=== PATIENT | female | born 1960 | race African-American/Black ===

== ENCOUNTER 2020-05-05 10:38 | Inpatient (IN) | payer MEDICAID, OTHER, SELFPAY ==
[~2020-05-05] VITALS: Ht 162.6 cm; Wt 72.1 kg
[2020-05-05] MEDS ORDERED: AZITHROMYCIN 500 MG in DEXT 5% WATER 250 ML IV ONE (11:15)
[2020-05-05] MEDS ORDERED: VANCOMYCIN 1 G PREMIX 200 ML IV ONE (11:15)
[2020-05-05] MEDS ORDERED: PIPERACILLIN/TAZ 3.375G PREMIX 50 ML IV ONE (11:15)
[2020-05-05 11:22] LABS: BASOPHILS % 0.8 % (0.0-2.0); HEMATOCRIT. 45.8 % (36.0-48.0); HEMOGLOBIN. 15.4 g/dL (12.0-16.0); LYMPHOCYTES % 7.2 % (20.0-50.0); MEAN CORPUSCULAR HEMOGLOBIN 29.6 pg (28.0-32.0); MEAN CORPUSCULAR VOLUME 87.8 fL (81.0-99.0); MEAN PLATELET VOLUME 11.9 fl (7.4-10.4); MONOCYTES % 2.6 % (2.0-8.0); NEUTROPHILS % 89.4 % (40.0-76.0); PLATELET 309 x1000/uL (130-400); RED BLOOD CELL COUNT 5.21 mill/uL (4.2-5.4); RED CELL DISTRIBUTION WIDTH 14.1 % (11.6-14.6)
[2020-05-05 11:27] LABS: CHLORIDE 113 mEq/L (98-107)
[2020-05-05 11:29] LABS: INR 1.1; PROTHROMBIN TIME 11.6 sec (9.6-11.0)
[2020-05-05 11:30] LABS: ETHANOL BLOOD < 10 mg/dL
[2020-05-05 11:35] LABS: CREATINE KINASE 429 IU/L (26-192)
[2020-05-05 11:35] LABS: CLARITY URINE TURBID (CLEAR); COLOR URINE DARK YELLOW (YELLOW); KETONES URINE 1+ (NEGATIVE); LEUKOCYTE ESTERASE URINE NEGATIVE (NEGATIVE); NITRITE URINE NEGATIVE (NEGATIVE); OCCULT BLOOD URINE 3+ (NEGATIVE); PROTEIN URINE 4+ (NEGATIVE); SPECIFIC GRAVITY URINE 1.045 (1.005-1.030); UROBILINOGEN URINE 0.2 E.U./dL (0.2-1.0)
[2020-05-05 11:42] LABS: HCG SCREEN NEGATIVE
[2020-05-05 11:51] LABS: *AMPHETAMINES SCREEN URINE NEGATIVE (NEGATIVE); *BARBITURATES SCREEN URINE NEGATIVE (NEGATIVE)
[2020-05-05 11:52] LABS: *BENZODIAZEPINES SCREEN URINE NEGATIVE (NEGATIVE); *COCAINE SCREEN URINE NEGATIVE (NEGATIVE); CANNABINOID URINE SCREEN PRESUMTIVE POSITIVE (NEGATIVE); METHADONE URINE SCREEN NEGATIVE (NEGATIVE); OPIATES URINE SCREEN NEGATIVE (NEGATIVE); PHENCYCLIDINE URINE SCREEN NEGATIVE (NEGATIVE)
[2020-05-05] MEDS ORDERED: LORAZEPAM 2MG/ML CPJ IV ONE (16:00)
[2020-05-05] MEDS ORDERED: METOPROLOL TARTRATE 25MG TABLET PO NR (16:30)
[2020-05-05] MEDS ORDERED: ONDANSETRON HCL 4MG/2ML INJ IV PRN (16:45)
[2020-05-05] MEDS ORDERED: ACETAMINOPHEN 325MG TABLET PO PRN (16:45)
[2020-05-05] MEDS: ASPIRIN 81MG TABLET PO SCH (16:55)
[2020-05-05 16:56] LABS: BG CARBOXYHEMOGLOBIN 0.3 % (0.5-1.5); BG DEOXYHEMOGLOBIN 1.3 % (0.0-5.0); BG HCO3 ACT 22.8 mmol/L (22.0-26.0); BG METHEMOGLOBIN 0.3 % (0.0-1.5); BG OXYGEN SATURATION 98.7 % (92.0-98.5); BG OXYHEMOGLOBIN 98.1 % (94.0-97.0); BG PCO2 39.5 mmHg (35.0-45.0); BG PO2 142.2 mmHg (75.0-100.0); BG SAMPLE SITE RIGHT RADIAL; BG TOTAL HEMOGLOBIN 14.3 g/dL (12.0-18.0); BG VENT MODE NASAL CANNULA
[2020-05-05 17:20] LABS: FOLIC ACID (FOLATE) SERUM 12.8 ng/mL (>5.38)
[2020-05-05] MEDS ORDERED: PIPERACILLIN/TAZOBACTAM 2.25 G in DEXTROSE 5% WATER 50 ML IV SCH (18:00)
[2020-05-05 20:00] VITALS: BP 140/93
[2020-05-05 20:55] VITALS: BP 140/93
[2020-05-05] MEDS ORDERED: SODIUM CHLORIDE 0.45% 1,000 ML IV ONE (21:30)
[2020-05-05] MEDS: METOPROLOL TARTRATE 25MG TABLET PO SCH (22:37)
[2020-05-05] MEDS: NITROGLYCERIN OINT 1GM/INCH UDPKT TD SCH (22:38)
[2020-05-05] MEDS: PIPERACILLIN/TAZOBACTAM 2.25 G in DEXTROSE 5% WATER 50 ML IV SCH (23:09)
[2020-05-06] VITALS: BP 130/84
[2020-05-06 04:00] VITALS: BP 124/84
[2020-05-06] MEDS: NITROGLYCERIN OINT 1GM/INCH UDPKT TD SCH ×3 (05:34→21:32)
[2020-05-06] MEDS: PIPERACILLIN/TAZOBACTAM 2.25 G in DEXTROSE 5% WATER 50 ML IV SCH ×2 (05:34→11:03)
[2020-05-06 06:47] LABS: HEMATOCRIT. 38.6 % (36.0-48.0); HEMOGLOBIN. 12.7 g/dL (12.0-16.0); MEAN CORPUSCULAR HEMOGLOBIN 28.9 pg (28.0-32.0); MEAN CORPUSCULAR VOLUME 88.1 fL (81.0-99.0); MEAN PLATELET VOLUME 12.5 fl (7.4-10.4); PLATELET 228 x1000/uL (130-400); RED BLOOD CELL COUNT 4.38 mill/uL (4.2-5.4); RED CELL DISTRIBUTION WIDTH 14.5 % (11.6-14.6)
[2020-05-06 07:08] LABS: PHOSPHORUS 4.3 mg/dL (2.5-4.9)
[2020-05-06 08:00] VITALS: BP 129/82
[2020-05-06] MEDS: ASPIRIN 81MG TABLET PO SCH (08:29)
[2020-05-06] MEDS: METOPROLOL TARTRATE 25MG TABLET PO SCH ×2 (08:29→21:00)
[2020-05-06] MEDS ORDERED: VANCOMYCIN 1 G PREMIX 200 ML IV NR (11:00)
[2020-05-06] MEDS: DEXT 5%/0.2% NACL 1,000 ML IV SCH (11:47)
[2020-05-06 12:00] VITALS: BP 107/66
[2020-05-06 14:00] VITALS: BP 120/75
[2020-05-06] MEDS ORDERED: CLOPIDOGREL 75MG TABLET PO NR (16:45)
[2020-05-06 20:00] VITALS: BP 102/60
[2020-05-06] MEDS: ATORVASTATIN CALCIUM 40MG TABLET PO SCH (21:35)
[2020-05-07] VITALS: BP 100/56
[2020-05-07] MEDS: DEXT 5%/0.2% NACL 1,000 ML IV SCH ×2 (02:54→13:45)
[2020-05-07 04:00] VITALS: BP 106/62
[2020-05-07] MEDS: NITROGLYCERIN OINT 1GM/INCH UDPKT TD SCH ×3 (05:32→22:08)
[2020-05-07 07:39] LABS: BASOPHILS % 0.2 % (0.0-2.0); EOSINOPHILS % 0.5 % (0.0-5.0); HEMATOCRIT. 33.8 % (36.0-48.0); HEMOGLOBIN. 11.4 g/dL (12.0-16.0); LYMPHOCYTES % 12.2 % (20.0-50.0); MEAN CORPUSCULAR HEMOGLOBIN 29.5 pg (28.0-32.0); MEAN CORPUSCULAR VOLUME 87.5 fL (81.0-99.0); MEAN PLATELET VOLUME 12.1 fl (7.4-10.4); MONOCYTES % 5.2 % (2.0-8.0); NEUTROPHILS % 81.9 % (40.0-76.0); PLATELET 172 x1000/uL (130-400); RED BLOOD CELL COUNT 3.86 mill/uL (4.2-5.4); RED CELL DISTRIBUTION WIDTH 14.1 % (11.6-14.6)
[2020-05-07 08:00] VITALS: BP 118/65
[2020-05-07 09:04] LABS: PLATELET ESTIMATE NORMAL
[2020-05-07] MEDS: ASPIRIN 81MG TABLET PO SCH (09:22)
[2020-05-07] MEDS: CLOPIDOGREL 75MG TABLET PO SCH (09:23)
[2020-05-07] MEDS: METOPROLOL TARTRATE 25MG TABLET PO SCH ×2 (09:23→22:07)
[2020-05-07] MEDS ORDERED: POTASSIUM PHOS,M-BASIC-D-BASIC 15 MMOL in DEXT 5% WATER 245 ML IV SCH (12:00)
[2020-05-07] MEDS: VANCOMYCIN 1 G PREMIX 200 ML IV SCH (13:45)
[2020-05-07 14:34] VITALS: BP 128/81
[2020-05-07 16:08] VITALS: BP 134/86
[2020-05-07 20:00] VITALS: BP 107/71
[2020-05-07] MEDS: ATORVASTATIN CALCIUM 40MG TABLET PO SCH (22:07)
[2020-05-08] VITALS: BP 135/89
[2020-05-08 04:00] VITALS: BP 147/88
[2020-05-08] MEDS: DEXT 5%/0.2% NACL 1,000 ML IV SCH ×2 (04:42→16:20)
[2020-05-08 06:43] LABS: BASOPHILS % 0.2 % (0.0-2.0); HEMATOCRIT. 35.2 % (36.0-48.0); LYMPHOCYTES % 14.3 % (20.0-50.0); MEAN CORPUSCULAR HEMOGLOBIN 29.8 pg (28.0-32.0); MEAN CORPUSCULAR VOLUME 87.1 fL (81.0-99.0); MEAN PLATELET VOLUME 12.2 fl (7.4-10.4); MONOCYTES % 7.3 % (2.0-8.0); NEUTROPHILS % 77.2 % (40.0-76.0); PLATELET 184 x1000/uL (130-400); RED BLOOD CELL COUNT 4.04 mill/uL (4.2-5.4); RED CELL DISTRIBUTION WIDTH 13.8 % (11.6-14.6)
[2020-05-08] MEDS: NITROGLYCERIN OINT 1GM/INCH UDPKT TD SCH ×3 (06:49→23:14)
[2020-05-08 07:17] LABS: CHLORIDE 108 mEq/L (98-107)
[2020-05-08 07:25] LABS: PHOSPHORUS 2.9 mg/dL (2.5-4.9); TOTAL IRON BINDING CAPACITY 253 ug/dL (250-450)
[2020-05-08 08:00] VITALS: BP 140/85
[2020-05-08] MEDS: VANCOMYCIN 1 G PREMIX 200 ML IV SCH (08:56)
[2020-05-08] MEDS: CLOPIDOGREL 75MG TABLET PO SCH (08:57)
[2020-05-08] MEDS: METOPROLOL TARTRATE 25MG TABLET PO SCH ×2 (08:57→21:21)
[2020-05-08] MEDS: ASPIRIN 81MG TABLET PO SCH (08:57)
[2020-05-08 12:00] VITALS: BP 144/76
[2020-05-08 16:00] VITALS: BP 143/90
[2020-05-08 20:00] VITALS: BP 142/98
[2020-05-08] MEDS: ATORVASTATIN CALCIUM 40MG TABLET PO SCH (21:21)
[2020-05-09] VITALS: BP 131/87
[2020-05-09] MEDS: VANCOMYCIN 1 G PREMIX 200 ML IV SCH ×2 (02:56→21:05)
[2020-05-09] MEDS: DEXT 5%/0.2% NACL 1,000 ML IV SCH ×2 (03:02→18:19)
[2020-05-09 04:00] VITALS: BP 135/89
[2020-05-09 06:22] LABS: BASOPHILS % 0.4 % (0.0-2.0); EOSINOPHILS % 1.8 % (0.0-5.0); HEMATOCRIT. 35.1 % (36.0-48.0); HEMOGLOBIN. 12.1 g/dL (12.0-16.0); LYMPHOCYTES % 15.3 % (20.0-50.0); MEAN CORPUSCULAR HEMOGLOBIN 29.8 pg (28.0-32.0); MEAN CORPUSCULAR VOLUME 86.7 fL (81.0-99.0); MEAN PLATELET VOLUME 11.9 fl (7.4-10.4); MONOCYTES % 7.6 % (2.0-8.0); NEUTROPHILS % 74.9 % (40.0-76.0); PLATELET 170 x1000/uL (130-400); RED BLOOD CELL COUNT 4.05 mill/uL (4.2-5.4); RED CELL DISTRIBUTION WIDTH 13.6 % (11.6-14.6)
[2020-05-09 06:34] LABS: CHLORIDE 107 mEq/L (98-107)
[2020-05-09] MEDS: NITROGLYCERIN OINT 1GM/INCH UDPKT TD SCH ×3 (06:40→21:04)
[2020-05-09 08:00] VITALS: BP 139/90
[2020-05-09] MEDS: ASPIRIN 81MG TABLET PO SCH (08:50)
[2020-05-09] MEDS: METOPROLOL TARTRATE 25MG TABLET PO SCH ×2 (08:50→21:03)
[2020-05-09] MEDS: CLOPIDOGREL 75MG TABLET PO SCH ×2 (08:51→15:50)
[2020-05-09 12:00] VITALS: BP 142/97
[2020-05-09] MEDS: NYSTATIN/TRIAMCIN CREAM 30GM TOP SCH (12:53)
[2020-05-09 16:00] VITALS: BP 145/98
[2020-05-09 20:00] VITALS: BP 139/95
[2020-05-09] MEDS: ATORVASTATIN CALCIUM 40MG TABLET PO SCH (21:04)
[2020-05-09] MEDS: ACETAMINOPHEN 325MG TABLET PO PRN (21:21)
[2020-05-10] VITALS: BP 120/85
[2020-05-10 06:54] LABS: BASOPHILS % 0.6 % (0.0-2.0); EOSINOPHILS % 3.2 % (0.0-5.0); HEMATOCRIT. 38.1 % (36.0-48.0); HEMOGLOBIN. 12.8 g/dL (12.0-16.0); LYMPHOCYTES % 17.4 % (20.0-50.0); MEAN CORPUSCULAR HEMOGLOBIN 29.5 pg (28.0-32.0); MEAN CORPUSCULAR VOLUME 88.1 fL (81.0-99.0); MEAN PLATELET VOLUME 12.2 fl (7.4-10.4); MONOCYTES % 7.8 % (2.0-8.0); PLATELET 185 x1000/uL (130-400); RED BLOOD CELL COUNT 4.32 mill/uL (4.2-5.4); RED CELL DISTRIBUTION WIDTH 13.4 % (11.6-14.6)
[2020-05-10] MEDS: NITROGLYCERIN OINT 1GM/INCH UDPKT TD SCH ×3 (06:56→22:43)
[2020-05-10 06:58] LABS: CHLORIDE 107 mEq/L (98-107)
[2020-05-10 07:05] LABS: PHOSPHORUS 4.3 mg/dL (2.5-4.9)
[2020-05-10 08:00] VITALS: BP 133/89
[2020-05-10] MEDS: ASPIRIN 81MG TABLET PO SCH (09:09)
[2020-05-10] MEDS: METOPROLOL TARTRATE 25MG TABLET PO SCH ×2 (09:09→22:42)
[2020-05-10] MEDS: CLOPIDOGREL 75MG TABLET PO SCH (10:10)
[2020-05-10] MEDS: DEXT 5%/0.2% NACL 1,000 ML IV SCH ×2 (10:19→22:43)
[2020-05-10] MEDS ORDERED: POTASSIUM CHLORIDE 20MEQ TABLET SR PO NR (10:30)
[2020-05-10 12:00] VITALS: BP 153/96
[2020-05-10 12:31] LABS: CLARITY URINE CLEAR (CLEAR); COLOR URINE YELLOW (YELLOW); KETONES URINE NEGATIVE (NEGATIVE); LEUKOCYTE ESTERASE URINE TRACE (NEGATIVE); NITRITE URINE NEGATIVE (NEGATIVE); OCCULT BLOOD URINE TRACE (NEGATIVE); PROTEIN URINE NEGATIVE (NEGATIVE); SPECIFIC GRAVITY URINE 1.013 (1.005-1.030); UROBILINOGEN URINE 0.2 E.U./dL (0.2-1.0)
[2020-05-10] MEDS: CEFEPIME 1,000 MG in DEXTROSE 5% WATER 50 ML IV SCH (14:11)
[2020-05-10] MEDS: VANCOMYCIN 1 G PREMIX 200 ML IV SCH (15:30)
[2020-05-10 16:00] VITALS: BP 158/95
[2020-05-10 20:00] VITALS: BP 124/88
[2020-05-10] MEDS: ATORVASTATIN CALCIUM 40MG TABLET PO SCH (22:43)
[2020-05-11] VITALS: BP 129/92
[2020-05-11] MEDS: CEFEPIME 1,000 MG in DEXTROSE 5% WATER 50 ML IV SCH ×2 (01:20→15:14)
[2020-05-11] MEDS: NITROGLYCERIN OINT 1GM/INCH UDPKT TD SCH ×3 (05:56→21:21)
[2020-05-11 07:12] LABS: BASOPHILS % 0.4 % (0.0-2.0); EOSINOPHILS % 1.8 % (0.0-5.0); HEMOGLOBIN. 12.5 g/dL (12.0-16.0); LYMPHOCYTES % 9.7 % (20.0-50.0); MEAN CORPUSCULAR HEMOGLOBIN 29.5 pg (28.0-32.0); MEAN CORPUSCULAR VOLUME 87.1 fL (81.0-99.0); MEAN PLATELET VOLUME 12.5 fl (7.4-10.4); MONOCYTES % 7.5 % (2.0-8.0); NEUTROPHILS % 80.6 % (40.0-76.0); PLATELET 207 x1000/uL (130-400); RED BLOOD CELL COUNT 4.25 mill/uL (4.2-5.4); RED CELL DISTRIBUTION WIDTH 13.4 % (11.6-14.6)
[2020-05-11 07:41] VITALS: BP 130/87
[2020-05-11 08:02] LABS: PHOSPHORUS 4.3 mg/dL (2.5-4.9)
[2020-05-11] MEDS: ASPIRIN 81MG TABLET PO SCH (09:00)
[2020-05-11] MEDS: METOPROLOL TARTRATE 25MG TABLET PO SCH ×2 (09:00→21:23)
[2020-05-11] MEDS: CLOPIDOGREL 75MG TABLET PO SCH (09:00)
[2020-05-11] MEDS ORDERED: FENTANYL CITRATE/PF 50MCG/ML 2ML VIAL ONE (11:40)
[2020-05-11] MEDS ORDERED: MIDAZOLAM HCL 2 MG/2 ML VIAL ONE (11:40)
[2020-05-11] MEDS ORDERED: LIDOCAINE HCL 2% JELLY 5ML ONE (12:02)
[2020-05-11] MEDS ORDERED: TETRACAINE/BENZOCAINE/BUTAMBEN 20 GM SPRAY MM ONE (12:02)
[2020-05-11 13:00] VITALS: BP 151/94
[2020-05-11 16:00] VITALS: BP 133/88
[2020-05-11 20:00] VITALS: BP 127/87
[2020-05-11] MEDS: DEXT 5%/0.2% NACL 1,000 ML IV SCH (20:05)
[2020-05-11] MEDS: ATORVASTATIN CALCIUM 40MG TABLET PO SCH (21:21)
[2020-05-11] MEDS: NYSTATIN/TRIAMCIN CREAM 30GM TOP SCH (21:21)
[2020-05-12] VITALS: BP 116/83
[2020-05-12] MEDS: CEFEPIME 1,000 MG in DEXTROSE 5% WATER 50 ML IV SCH ×2 (00:32→13:16)
[2020-05-12 04:00] VITALS: BP 121/77
[2020-05-12] MEDS: NITROGLYCERIN OINT 1GM/INCH UDPKT TD SCH ×3 (05:55→21:02)
[2020-05-12] MEDS: NYSTATIN/TRIAMCIN CREAM 30GM TOP SCH ×3 (05:56→21:02)
[2020-05-12 07:31] LABS: BASOPHILS % 0.7 % (0.0-2.0); EOSINOPHILS % 2.9 % (0.0-5.0); HEMATOCRIT. 34.2 % (36.0-48.0); HEMOGLOBIN. 11.6 g/dL (12.0-16.0); LYMPHOCYTES % 13.4 % (20.0-50.0); MEAN CORPUSCULAR HEMOGLOBIN 29.6 pg (28.0-32.0); MEAN PLATELET VOLUME 12.6 fl (7.4-10.4); MONOCYTES % 8.4 % (2.0-8.0); NEUTROPHILS % 74.6 % (40.0-76.0); PLATELET 210 x1000/uL (130-400); RED BLOOD CELL COUNT 3.92 mill/uL (4.2-5.4); RED CELL DISTRIBUTION WIDTH 13.5 % (11.6-14.6)
[2020-05-12 07:58] LABS: CHLORIDE 106 mEq/L (98-107)
[2020-05-12 08:11] LABS: PHOSPHORUS 3.4 mg/dL (2.5-4.9)
[2020-05-12] MEDS: ASPIRIN 81MG TABLET PO SCH (09:50)
[2020-05-12] MEDS: METOPROLOL TARTRATE 25MG TABLET PO SCH ×2 (09:50→21:02)
[2020-05-12] MEDS: CLOPIDOGREL 75MG TABLET PO SCH (09:51)
[2020-05-12 12:00] VITALS: BP 155/101
[2020-05-12] MEDS: DEXT 5%/0.2% NACL 1,000 ML IV SCH (13:16)
[2020-05-12 16:00] VITALS: BP 125/93
[2020-05-12 20:00] VITALS: BP 149/90
[2020-05-12] MEDS: ATORVASTATIN CALCIUM 40MG TABLET PO SCH (21:02)
[2020-05-13] VITALS: BP 133/86
[2020-05-13] MEDS: CEFEPIME 1,000 MG in DEXTROSE 5% WATER 50 ML IV SCH ×2 (01:50→13:20)
[2020-05-13] MEDS: DEXT 5%/0.2% NACL 1,000 ML IV SCH ×2 (03:47→16:59)
[2020-05-13 04:00] VITALS: BP 135/81
[2020-05-13] MEDS: NYSTATIN/TRIAMCIN CREAM 30GM TOP SCH ×3 (06:18→21:11)
[2020-05-13] MEDS: NITROGLYCERIN OINT 1GM/INCH UDPKT TD SCH ×3 (06:18→21:10)
[2020-05-13 07:16] LABS: BASOPHILS % 0.5 % (0.0-2.0); EOSINOPHILS % 2.6 % (0.0-5.0); HEMATOCRIT. 36.5 % (36.0-48.0); HEMOGLOBIN. 12.4 g/dL (12.0-16.0); LYMPHOCYTES % 15.8 % (20.0-50.0); MEAN CORPUSCULAR HEMOGLOBIN 29.7 pg (28.0-32.0); MEAN CORPUSCULAR VOLUME 87.9 fL (81.0-99.0); MEAN PLATELET VOLUME 12.6 fl (7.4-10.4); MONOCYTES % 7.4 % (2.0-8.0); NEUTROPHILS % 73.7 % (40.0-76.0); PLATELET 209 x1000/uL (130-400); RED BLOOD CELL COUNT 4.16 mill/uL (4.2-5.4); RED CELL DISTRIBUTION WIDTH 13.5 % (11.6-14.6)
[2020-05-13 07:50] LABS: CHLORIDE 107 mEq/L (98-107)
[2020-05-13 07:56] LABS: PHOSPHORUS 3.8 mg/dL (2.5-4.9)
[2020-05-13 08:00] VITALS: BP 131/86
[2020-05-13] MEDS: CLOPIDOGREL 75MG TABLET PO SCH (08:23)
[2020-05-13] MEDS: ASPIRIN 81MG TABLET PO SCH (08:23)
[2020-05-13] MEDS: METOPROLOL TARTRATE 25MG TABLET PO SCH ×2 (08:24→21:10)
[2020-05-13 12:00] VITALS: BP 129/84
[2020-05-13 16:00] VITALS: BP 145/89
[2020-05-13 20:00] VITALS: BP 148/99
[2020-05-13] MEDS: ATORVASTATIN CALCIUM 40MG TABLET PO SCH (21:10)
[2020-05-14] VITALS: BP 154/93
[2020-05-14] MEDS: CEFEPIME 1,000 MG in DEXTROSE 5% WATER 50 ML IV SCH ×2 (01:03→13:18)
[2020-05-14 04:00] VITALS: BP 120/83
[2020-05-14] MEDS: DEXT 5%/0.2% NACL 1,000 ML IV SCH ×2 (05:15→23:21)
[2020-05-14] MEDS: NITROGLYCERIN OINT 1GM/INCH UDPKT TD SCH ×3 (05:15→21:56)
[2020-05-14] MEDS: NYSTATIN/TRIAMCIN CREAM 30GM TOP SCH ×3 (05:17→21:57)
[2020-05-14 06:54] LABS: BASOPHILS % 0.6 % (0.0-2.0); EOSINOPHILS % 2.4 % (0.0-5.0); HEMATOCRIT. 34.2 % (36.0-48.0); HEMOGLOBIN. 11.5 g/dL (12.0-16.0); LYMPHOCYTES % 15.2 % (20.0-50.0); MEAN CORPUSCULAR HEMOGLOBIN 29.2 pg (28.0-32.0); MEAN PLATELET VOLUME 12.2 fl (7.4-10.4); MONOCYTES % 8.1 % (2.0-8.0); NEUTROPHILS % 73.7 % (40.0-76.0); PLATELET 240 x1000/uL (130-400); RED BLOOD CELL COUNT 3.93 mill/uL (4.2-5.4); RED CELL DISTRIBUTION WIDTH 13.4 % (11.6-14.6)
[2020-05-14 07:36] LABS: CHLORIDE 107 mEq/L (98-107)
[2020-05-14 07:45] LABS: PHOSPHORUS 3.9 mg/dL (2.5-4.9)
[2020-05-14 08:00] VITALS: BP 149/97
[2020-05-14] MEDS: ASPIRIN 81MG TABLET PO SCH (08:33)
[2020-05-14] MEDS: METOPROLOL TARTRATE 25MG TABLET PO SCH ×2 (08:34→21:56)
[2020-05-14] MEDS: CLOPIDOGREL 75MG TABLET PO SCH (08:34)
[2020-05-14 11:47] VITALS: BP 132/88
[2020-05-14 16:00] VITALS: BP 150/89
[2020-05-14] MEDS: IRON SUCROSE COMPLEX 100 MG/5 ML ML IV SCH (18:21)
[2020-05-14 20:00] VITALS: BP 150/97
[2020-05-14] MEDS: ATORVASTATIN CALCIUM 40MG TABLET PO SCH (21:56)
[2020-05-15] VITALS: BP 144/94
[2020-05-15] MEDS: CEFEPIME 1,000 MG in DEXTROSE 5% WATER 50 ML IV SCH (00:51)
[2020-05-15 04:00] VITALS: BP 143/88
[2020-05-15] MEDS: NITROGLYCERIN OINT 1GM/INCH UDPKT TD SCH ×3 (05:56→22:15)
[2020-05-15] MEDS: NYSTATIN/TRIAMCIN CREAM 30GM TOP SCH ×3 (05:56→22:17)
[2020-05-15 08:00] VITALS: BP 122/80
[2020-05-15] MEDS: CLOPIDOGREL 75MG TABLET PO SCH (08:53)
[2020-05-15] MEDS: ASPIRIN 81MG TABLET PO SCH (08:53)
[2020-05-15] MEDS: DEXT 5%/0.2% NACL 1,000 ML IV SCH ×2 (08:53→22:16)
[2020-05-15] MEDS: METOPROLOL TARTRATE 25MG TABLET PO SCH (08:54)
[2020-05-15 12:00] VITALS: BP 137/88
[2020-05-15 16:22] VITALS: BP 145/91
[2020-05-15] MEDS: IRON SUCROSE COMPLEX 100 MG/5 ML ML IV SCH (17:57)
[2020-05-15 20:00] VITALS: BP_SYST 129; BP_SYST 151; BP_DIAS 90; BP_DIAS 98
[2020-05-15] MEDS: METOPROLOL TARTRATE 50MG TABLET PO SCH (22:16)
[2020-05-15] MEDS: ATORVASTATIN CALCIUM 40MG TABLET PO SCH (22:16)
[2020-05-16] VITALS: BP 129/90
[2020-05-16 04:00] VITALS: BP 120/79
[2020-05-16 05:13] LABS: CHLORIDE 107 mEq/L (98-107)
[2020-05-16 05:17] LABS: PHOSPHORUS 3.5 mg/dL (2.5-4.9)
[2020-05-16 05:18] LABS: BASOPHILS % 0.6 % (0.0-2.0); EOSINOPHILS % 2.8 % (0.0-5.0); HEMOGLOBIN. 11.4 g/dL (12.0-16.0); LYMPHOCYTES % 12.8 % (20.0-50.0); MEAN CORPUSCULAR HEMOGLOBIN 29.8 pg (28.0-32.0); MEAN CORPUSCULAR VOLUME 86.5 fL (81.0-99.0); MEAN PLATELET VOLUME 11.4 fl (7.4-10.4); MONOCYTES % 7.4 % (2.0-8.0); NEUTROPHILS % 76.4 % (40.0-76.0); PLATELET 265 x1000/uL (130-400); RED BLOOD CELL COUNT 3.81 mill/uL (4.2-5.4); RED CELL DISTRIBUTION WIDTH 13.5 % (11.6-14.6)
[2020-05-16] MEDS: NITROGLYCERIN OINT 1GM/INCH UDPKT TD SCH ×3 (06:23→22:21)
[2020-05-16] MEDS: NYSTATIN/TRIAMCIN CREAM 30GM TOP SCH ×3 (06:24→22:21)
[2020-05-16 08:00] VITALS: BP 135/70
[2020-05-16] MEDS: ASPIRIN 81MG TABLET PO SCH (09:23)
[2020-05-16] MEDS: CLOPIDOGREL 75MG TABLET PO SCH (09:24)
[2020-05-16] MEDS: DEXT 5%/0.2% NACL 1,000 ML IV SCH (09:24)
[2020-05-16] MEDS: METOPROLOL TARTRATE 50MG TABLET PO SCH ×2 (09:24→22:24)
[2020-05-16 12:03] VITALS: BP 135/82
[2020-05-16 16:00] VITALS: BP 144/84
[2020-05-16] MEDS: IRON SUCROSE COMPLEX 100 MG/5 ML ML IV SCH (18:04)
[2020-05-16 20:00] VITALS: BP 138/89
[2020-05-16] MEDS: ATORVASTATIN CALCIUM 40MG TABLET PO SCH (22:25)
[2020-05-17] VITALS: BP 139/93
[2020-05-17] MEDS: DEXT 5%/0.2% NACL 1,000 ML IV SCH ×2 (02:01→19:34)
[2020-05-17 04:00] VITALS: BP 122/70
[2020-05-17] MEDS: NYSTATIN/TRIAMCIN CREAM 30GM TOP SCH ×3 (05:27→21:02)
[2020-05-17] MEDS: NITROGLYCERIN OINT 1GM/INCH UDPKT TD SCH ×3 (05:27→21:02)
[2020-05-17 08:00] VITALS: BP 133/80
[2020-05-17 08:30] LABS: BASOPHILS % 0.6 % (0.0-2.0); HEMATOCRIT. 34.5 % (36.0-48.0); HEMOGLOBIN. 11.6 g/dL (12.0-16.0); LYMPHOCYTES % 14.8 % (20.0-50.0); MEAN CORPUSCULAR HEMOGLOBIN 29.3 pg (28.0-32.0); MEAN CORPUSCULAR VOLUME 87.4 fL (81.0-99.0); MEAN PLATELET VOLUME 11.8 fl (7.4-10.4); NEUTROPHILS % 76.6 % (40.0-76.0); PLATELET 320 x1000/uL (130-400); RED BLOOD CELL COUNT 3.95 mill/uL (4.2-5.4); RED CELL DISTRIBUTION WIDTH 13.5 % (11.6-14.6)
[2020-05-17 08:44] LABS: CHLORIDE 107 mEq/L (98-107)
[2020-05-17 08:49] LABS: PHOSPHORUS 3.3 mg/dL (2.5-4.9)
[2020-05-17] MEDS: METOPROLOL TARTRATE 50MG TABLET PO SCH ×2 (08:51→20:38)
[2020-05-17] MEDS: CLOPIDOGREL 75MG TABLET PO SCH (08:51)
[2020-05-17] MEDS: ASPIRIN 81MG TABLET PO SCH (08:51)
[2020-05-17 11:05] LABS: CLARITY URINE CLOUDY (CLEAR); COLOR URINE YELLOW (YELLOW); KETONES URINE NEGATIVE (NEGATIVE); LEUKOCYTE ESTERASE URINE NEGATIVE (NEGATIVE); NITRITE URINE NEGATIVE (NEGATIVE); OCCULT BLOOD URINE NEGATIVE (NEGATIVE); PH URINE 5.5 (4.5-8.0); PROTEIN URINE NEGATIVE (NEGATIVE); SPECIFIC GRAVITY URINE 1.009 (1.005-1.030); UROBILINOGEN URINE 0.2 E.U./dL (0.2-1.0)
[2020-05-17 12:00] VITALS: BP 145/80
[2020-05-17 16:12] VITALS: BP 133/90
[2020-05-17 20:00] VITALS: BP 155/96
[2020-05-17] MEDS: ATORVASTATIN CALCIUM 40MG TABLET PO SCH (20:38)
[2020-05-18] VITALS: BP 107/79
[2020-05-18 04:00] VITALS: BP_SYST 106; BP_SYST 154; BP_DIAS 63; BP_DIAS 80
[2020-05-18] MEDS: DEXT 5%/0.2% NACL 1,000 ML IV SCH ×2 (04:35→15:18)
[2020-05-18] MEDS: NITROGLYCERIN OINT 1GM/INCH UDPKT TD SCH ×3 (06:00→21:20)
[2020-05-18] MEDS: NYSTATIN/TRIAMCIN CREAM 30GM TOP SCH ×3 (06:00→21:20)
[2020-05-18] MEDS: ASPIRIN 81MG TABLET PO SCH (09:08)
[2020-05-18] MEDS: METOPROLOL TARTRATE 50MG TABLET PO SCH ×2 (09:09→21:20)
[2020-05-18] MEDS: CLOPIDOGREL 75MG TABLET PO SCH (09:09)
[2020-05-18 12:00] VITALS: BP 139/89
[2020-05-18 16:00] VITALS: BP 148/94
[2020-05-18 20:00] VITALS: BP 165/90
[2020-05-18] MEDS: ATORVASTATIN CALCIUM 40MG TABLET PO SCH (21:20)
[2020-05-19] VITALS: BP 145/60
[2020-05-19 04:00] VITALS: BP 112/74
[2020-05-19] MEDS: DEXT 5%/0.2% NACL 1,000 ML IV SCH ×2 (05:40→18:04)
[2020-05-19 05:57] LABS: BASOPHILS % 0.8 % (0.0-2.0); EOSINOPHILS % 1.8 % (0.0-5.0); HEMATOCRIT. 34.1 % (36.0-48.0); HEMOGLOBIN. 11.3 g/dL (12.0-16.0); MEAN CORPUSCULAR VOLUME 87.5 fL (81.0-99.0); MEAN PLATELET VOLUME 11.6 fl (7.4-10.4); MONOCYTES % 5.9 % (2.0-8.0); NEUTROPHILS % 79.5 % (40.0-76.0); PLATELET 305 x1000/uL (130-400); RED CELL DISTRIBUTION WIDTH 13.8 % (11.6-14.6)
[2020-05-19] MEDS: NYSTATIN/TRIAMCIN CREAM 30GM TOP SCH ×3 (06:09→21:45)
[2020-05-19] MEDS: NITROGLYCERIN OINT 1GM/INCH UDPKT TD SCH ×3 (06:09→21:40)
[2020-05-19 06:31] LABS: CHLORIDE 108 mEq/L (98-107)
[2020-05-19 06:40] LABS: PHOSPHORUS 3.6 mg/dL (2.5-4.9)
[2020-05-19 08:00] VITALS: BP 125/90
[2020-05-19] MEDS: ASPIRIN 81MG TABLET PO SCH (08:57)
[2020-05-19] MEDS: CLOPIDOGREL 75MG TABLET PO SCH (08:57)
[2020-05-19] MEDS: METOPROLOL TARTRATE 50MG TABLET PO SCH ×2 (08:58→21:40)
[2020-05-19 12:00] VITALS: BP 127/82
[2020-05-19 16:00] VITALS: BP 125/86
[2020-05-19 20:00] VITALS: BP 144/98
[2020-05-19] MEDS: ATORVASTATIN CALCIUM 40MG TABLET PO SCH (21:40)
[2020-05-20] VITALS: BP 138/78
[2020-05-20 04:00] VITALS: BP 150/69
[2020-05-20] MEDS: NITROGLYCERIN OINT 1GM/INCH UDPKT TD SCH ×3 (06:52→22:00)
[2020-05-20] MEDS: NYSTATIN/TRIAMCIN CREAM 30GM TOP SCH ×3 (06:52→21:43)
[2020-05-20 08:00] VITALS: BP 103/70
[2020-05-20] MEDS: METOPROLOL TARTRATE 50MG TABLET PO SCH ×2 (08:51→21:40)
[2020-05-20] MEDS: ASPIRIN 81MG TABLET PO SCH (08:51)
[2020-05-20] MEDS: CLOPIDOGREL 75MG TABLET PO SCH (08:51)
[2020-05-20] MEDS: DEXT 5%/0.2% NACL 1,000 ML IV SCH ×2 (08:52→21:41)
[2020-05-20 12:00] VITALS: BP 121/82
[2020-05-20 16:00] VITALS: BP 146/100
[2020-05-20 20:00] VITALS: BP 135/91
[2020-05-20] MEDS: ATORVASTATIN CALCIUM 40MG TABLET PO SCH (21:40)
[2020-05-20] MEDS: ACETAMINOPHEN 325MG TABLET PO PRN (21:55)
[2020-05-21] VITALS: BP 106/61
[2020-05-21 04:00] VITALS: BP 101/62
[2020-05-21] MEDS: NITROGLYCERIN OINT 1GM/INCH UDPKT TD SCH ×3 (06:00→21:57)
[2020-05-21] MEDS: NYSTATIN/TRIAMCIN CREAM 30GM TOP SCH ×3 (07:24→21:58)
[2020-05-21 08:00] VITALS: BP 118/90
[2020-05-21] MEDS: CLOPIDOGREL 75MG TABLET PO SCH (09:45)
[2020-05-21] MEDS: ASPIRIN 81MG TABLET PO SCH (09:45)
[2020-05-21] MEDS: METOPROLOL TARTRATE 50MG TABLET PO SCH ×2 (09:46→21:57)
[2020-05-21 12:00] VITALS: BP 121/83
[2020-05-21 16:00] VITALS: BP 124/83
[2020-05-21] MEDS: DEXT 5%/0.2% NACL 1,000 ML IV SCH (18:30)
[2020-05-21 20:00] VITALS: BP 131/85
[2020-05-21] MEDS: ATORVASTATIN CALCIUM 40MG TABLET PO SCH (21:56)
[2020-05-22] VITALS: BP 117/76
[2020-05-22] MEDS: DEXT 5%/0.2% NACL 1,000 ML IV SCH ×2 (00:50→14:31)
[2020-05-22 04:00] VITALS: BP 108/78
[2020-05-22] MEDS: NITROGLYCERIN OINT 1GM/INCH UDPKT TD SCH ×3 (05:14→22:01)
[2020-05-22] MEDS: NYSTATIN/TRIAMCIN CREAM 30GM TOP SCH ×3 (05:16→22:02)
[2020-05-22 08:00] VITALS: BP 105/71
[2020-05-22] MEDS: CLOPIDOGREL 75MG TABLET PO SCH (08:38)
[2020-05-22] MEDS: ASPIRIN 81MG TABLET PO SCH (08:38)
[2020-05-22] MEDS: METOPROLOL TARTRATE 50MG TABLET PO SCH ×2 (09:00→21:01)
[2020-05-22 12:00] VITALS: BP 131/86
[2020-05-22 16:00] VITALS: BP 146/87
[2020-05-22 20:00] VITALS: BP 139/87
[2020-05-22] MEDS: ATORVASTATIN CALCIUM 40MG TABLET PO SCH (20:59)
[2020-05-23] VITALS: BP 127/86
[2020-05-23 04:00] VITALS: BP 120/75
[2020-05-23] MEDS: NITROGLYCERIN OINT 1GM/INCH UDPKT TD SCH ×3 (06:05→21:41)
[2020-05-23] MEDS: DEXT 5%/0.2% NACL 1,000 ML IV SCH ×2 (06:05→16:20)
[2020-05-23] MEDS: NYSTATIN/TRIAMCIN CREAM 30GM TOP SCH ×3 (06:13→21:41)
[2020-05-23 08:00] VITALS: BP 124/77
[2020-05-23] MEDS: CLOPIDOGREL 75MG TABLET PO SCH (09:00)
[2020-05-23] MEDS: ASPIRIN 81MG TABLET PO SCH (09:00)
[2020-05-23] MEDS: METOPROLOL TARTRATE 50MG TABLET PO SCH ×2 (09:01→21:40)
[2020-05-23 12:00] VITALS: BP 139/85
[2020-05-23 16:00] VITALS: BP 135/83
[2020-05-23 20:00] VITALS: BP 138/86
[2020-05-23] MEDS: ATORVASTATIN CALCIUM 40MG TABLET PO SCH (21:40)
[2020-05-24] VITALS: BP 134/83
[2020-05-24 04:00] VITALS: BP 123/80
[2020-05-24] MEDS: DEXT 5%/0.2% NACL 1,000 ML IV SCH ×2 (05:21→17:36)
[2020-05-24] MEDS: NYSTATIN/TRIAMCIN CREAM 30GM TOP SCH ×3 (06:11→21:30)
[2020-05-24] MEDS: NITROGLYCERIN OINT 1GM/INCH UDPKT TD SCH ×3 (06:11→21:29)
[2020-05-24 08:00] VITALS: BP 142/89
[2020-05-24] MEDS: ASPIRIN 81MG TABLET PO SCH (09:00)
[2020-05-24] MEDS: CLOPIDOGREL 75MG TABLET PO SCH (09:32)
[2020-05-24] MEDS: METOPROLOL TARTRATE 50MG TABLET PO SCH ×2 (09:32→21:29)
[2020-05-24 12:00] VITALS: BP 147/78
[2020-05-24 16:00] VITALS: BP 138/95
[2020-05-24 20:00] VITALS: BP 150/97
[2020-05-24] MEDS: ATORVASTATIN CALCIUM 40MG TABLET PO SCH (21:29)
[2020-05-25] VITALS: BP 131/84
[2020-05-25 04:00] VITALS: BP 130/85
[2020-05-25] MEDS: NYSTATIN/TRIAMCIN CREAM 30GM TOP SCH ×3 (06:12→21:20)
[2020-05-25] MEDS: NITROGLYCERIN OINT 1GM/INCH UDPKT TD SCH ×3 (06:12→21:20)
[2020-05-25 08:00] VITALS: BP 138/92
[2020-05-25] MEDS: METOPROLOL TARTRATE 50MG TABLET PO SCH ×2 (09:17→21:20)
[2020-05-25] MEDS: CLOPIDOGREL 75MG TABLET PO SCH (09:17)
[2020-05-25] MEDS: ASPIRIN 81MG TABLET PO SCH (09:17)
[2020-05-25] MEDS: DEXT 5%/0.2% NACL 1,000 ML IV SCH (09:22)
[2020-05-25 12:00] VITALS: BP 119/78
[2020-05-25 16:00] VITALS: BP 121/82
[2020-05-25 20:00] VITALS: BP 148/89
[2020-05-25] MEDS: ATORVASTATIN CALCIUM 40MG TABLET PO SCH (21:20)
[2020-05-26] VITALS: BP 123/78
[2020-05-26 04:00] VITALS: BP 111/71
[2020-05-26] MEDS: NITROGLYCERIN OINT 1GM/INCH UDPKT TD SCH ×3 (05:41→21:21)
[2020-05-26] MEDS: NYSTATIN/TRIAMCIN CREAM 30GM TOP SCH ×3 (05:41→21:21)
[2020-05-26 08:00] VITALS: BP 147/96
[2020-05-26] MEDS: CLOPIDOGREL 75MG TABLET PO SCH (09:23)
[2020-05-26] MEDS: METOPROLOL TARTRATE 50MG TABLET PO SCH ×2 (09:24→21:20)
[2020-05-26] MEDS: ASPIRIN 81MG TABLET PO SCH (09:24)
[2020-05-26] MEDS: DOCUSATE SODIUM 100MG CAPSULE PO PRN (09:24)
[2020-05-26 12:00] VITALS: BP 140/91
[2020-05-26 16:00] VITALS: BP 136/93
[2020-05-26 20:00] VITALS: BP 134/90
[2020-05-26] MEDS: ATORVASTATIN CALCIUM 40MG TABLET PO SCH (21:20)
[2020-05-27] VITALS: BP 129/86
[2020-05-27 04:00] VITALS: BP 105/69
[2020-05-27] MEDS: NITROGLYCERIN OINT 1GM/INCH UDPKT TD SCH ×3 (05:30→21:14)
[2020-05-27] MEDS: NYSTATIN/TRIAMCIN CREAM 30GM TOP SCH ×3 (05:30→21:14)
[2020-05-27 08:21] VITALS: BP 106/74
[2020-05-27] MEDS: METOPROLOL TARTRATE 50MG TABLET PO SCH ×2 (09:00→21:13)
[2020-05-27] MEDS: ASPIRIN 81MG TABLET PO SCH (09:33)
[2020-05-27] MEDS: CLOPIDOGREL 75MG TABLET PO SCH (09:33)
[2020-05-27 12:09] VITALS: BP 121/76
[2020-05-27 16:22] VITALS: BP 115/81
[2020-05-27 20:00] VITALS: BP 129/80
[2020-05-27] MEDS: ATORVASTATIN CALCIUM 40MG TABLET PO SCH (21:14)
[2020-05-28] VITALS: BP 109/71
[2020-05-28 04:00] VITALS: BP 112/72
[2020-05-28] MEDS: NYSTATIN/TRIAMCIN CREAM 30GM TOP SCH ×3 (05:35→21:55)
[2020-05-28] MEDS: NITROGLYCERIN OINT 1GM/INCH UDPKT TD SCH ×3 (05:38→21:55)
[2020-05-28 08:00] VITALS: BP 125/69
[2020-05-28] MEDS: ASPIRIN 81MG TABLET PO SCH (09:07)
[2020-05-28] MEDS: CLOPIDOGREL 75MG TABLET PO SCH (09:07)
[2020-05-28] MEDS: METOPROLOL TARTRATE 50MG TABLET PO SCH ×2 (09:08→21:54)
[2020-05-28 12:00] VITALS: BP 132/76
[2020-05-28 16:00] VITALS: BP 128/90
[2020-05-28 20:00] VITALS: BP 111/74
[2020-05-28] MEDS: ATORVASTATIN CALCIUM 40MG TABLET PO SCH (21:55)
[2020-05-29] VITALS: BP_SYST 105; BP_DIAS 57; BP_DIAS 67
[2020-05-29 04:00] VITALS: BP 103/60
[2020-05-29] MEDS: NITROGLYCERIN OINT 1GM/INCH UDPKT TD SCH ×3 (06:00→20:41)
[2020-05-29] MEDS: NYSTATIN/TRIAMCIN CREAM 30GM TOP SCH ×3 (06:27→20:41)
[2020-05-29 08:00] VITALS: BP 124/79
[2020-05-29] MEDS: CLOPIDOGREL 75MG TABLET PO SCH (08:38)
[2020-05-29] MEDS: ASPIRIN 81MG TABLET PO SCH (08:38)
[2020-05-29] MEDS: METOPROLOL TARTRATE 50MG TABLET PO SCH ×2 (08:39→20:41)
[2020-05-29 12:00] VITALS: BP 125/85
[2020-05-29 16:00] VITALS: BP 124/86
[2020-05-29 20:00] VITALS: BP 160/94
[2020-05-29] MEDS: ATORVASTATIN CALCIUM 40MG TABLET PO SCH (20:41)
[2020-05-30] VITALS: BP 130/94
[2020-05-30 04:00] VITALS: BP 125/75
[2020-05-30] MEDS: NITROGLYCERIN OINT 1GM/INCH UDPKT TD SCH ×3 (06:11→22:26)
[2020-05-30] MEDS: NYSTATIN/TRIAMCIN CREAM 30GM TOP SCH ×3 (06:11→22:27)
[2020-05-30 08:00] VITALS: BP 109/77
[2020-05-30] MEDS: ASPIRIN 81MG TABLET PO SCH (08:46)
[2020-05-30] MEDS: DOCUSATE SODIUM 100MG CAPSULE PO PRN (08:46)
[2020-05-30] MEDS: CLOPIDOGREL 75MG TABLET PO SCH (08:47)
[2020-05-30] MEDS: METOPROLOL TARTRATE 50MG TABLET PO SCH ×2 (08:47→22:26)
[2020-05-30 12:00] VITALS: BP 114/69
[2020-05-30 16:00] VITALS: BP 113/72
[2020-05-30 20:00] VITALS: BP 130/84
[2020-05-30] MEDS: ATORVASTATIN CALCIUM 40MG TABLET PO SCH (22:26)
[2020-05-31] VITALS: BP 106/75
[2020-05-31 04:00] VITALS: BP 119/68
[2020-05-31] MEDS: NITROGLYCERIN OINT 1GM/INCH UDPKT TD SCH ×3 (06:19→21:57)
[2020-05-31] MEDS: NYSTATIN/TRIAMCIN CREAM 30GM TOP SCH ×3 (06:19→21:57)
[2020-05-31 08:00] VITALS: BP 119/68
[2020-05-31] MEDS: METOPROLOL TARTRATE 50MG TABLET PO SCH ×2 (09:52→21:57)
[2020-05-31] MEDS: ASPIRIN 81MG TABLET PO SCH (09:52)
[2020-05-31] MEDS: CLOPIDOGREL 75MG TABLET PO SCH (09:52)
[2020-05-31 12:00] VITALS: BP 121/76
[2020-05-31 16:00] VITALS: BP 131/84
[2020-05-31 20:00] VITALS: BP 150/95
[2020-05-31] MEDS: ATORVASTATIN CALCIUM 40MG TABLET PO SCH (21:57)
[2020-06-01] VITALS: BP 115/79
[2020-06-01 04:00] VITALS: BP 123/80
[2020-06-01] MEDS: NYSTATIN/TRIAMCIN CREAM 30GM TOP SCH ×3 (06:16→22:16)
[2020-06-01] MEDS: NITROGLYCERIN OINT 1GM/INCH UDPKT TD SCH ×3 (06:16→22:14)
[2020-06-01 08:00] VITALS: BP 96/54
[2020-06-01] MEDS: METOPROLOL TARTRATE 50MG TABLET PO SCH ×2 (09:00→22:14)
[2020-06-01] MEDS: CLOPIDOGREL 75MG TABLET PO SCH (09:14)
[2020-06-01] MEDS: ASPIRIN 81MG TABLET PO SCH (09:14)
[2020-06-01 12:00] VITALS: BP 109/78
[2020-06-01] MEDS: CYANOCOBALAMIN 1000MCG/ML VIAL IM SCH (12:13)
[2020-06-01 16:00] VITALS: BP 120/84
[2020-06-01 16:21] LABS: BASOPHILS % 0.6 % (0.0-2.0); HEMATOCRIT. 37.2 % (36.0-48.0); HEMOGLOBIN. 12.7 g/dL (12.0-16.0); LYMPHOCYTES % 20.3 % (20.0-50.0); MEAN PLATELET VOLUME 12.6 fl (7.4-10.4); MONOCYTES % 6.3 % (2.0-8.0); NEUTROPHILS % 70.8 % (40.0-76.0); PLATELET 217 x1000/uL (130-400); RED BLOOD CELL COUNT 4.22 mill/uL (4.2-5.4); RED CELL DISTRIBUTION WIDTH 13.6 % (11.6-14.6)
[2020-06-01 16:26] LABS: CHLORIDE 108 mEq/L (98-107)
[2020-06-01 20:00] VITALS: BP 137/88
[2020-06-01] MEDS: ATORVASTATIN CALCIUM 40MG TABLET PO SCH (22:14)
[2020-06-02] VITALS: BP 105/70
[2020-06-02 04:00] VITALS: BP 129/73
[2020-06-02] MEDS: NYSTATIN/TRIAMCIN CREAM 30GM TOP SCH ×3 (06:27→22:30)
[2020-06-02] MEDS: NITROGLYCERIN OINT 1GM/INCH UDPKT TD SCH ×3 (06:29→22:30)
[2020-06-02] MEDS: METOPROLOL TARTRATE 50MG TABLET PO SCH ×2 (08:57→22:29)
[2020-06-02] MEDS: CYANOCOBALAMIN 1000MCG/ML VIAL IM SCH (09:11)
[2020-06-02] MEDS: CLOPIDOGREL 75MG TABLET PO SCH (09:11)
[2020-06-02] MEDS: ASPIRIN 81MG TABLET PO SCH (09:11)
[2020-06-02] MEDS ORDERED: BISACODYL 10MG SUPP PR PRN (13:30)
[2020-06-02] MEDS: LACTULOSE 20G/30ML UDC PO SCH ×3 (15:00→22:30)
[2020-06-02] MEDS: DOCUSATE SODIUM 100MG CAPSULE PO SCH (16:32)
[2020-06-02] MEDS: ATORVASTATIN CALCIUM 40MG TABLET PO SCH (22:27)
[2020-06-02] MEDS: POLYETHYLENE GLYCOL 3350 (17GM) 1 DOSE PACK PO SCH (22:29)
[2020-06-03] VITALS: BP 101/65
[2020-06-03 04:00] VITALS: BP 109/73
[2020-06-03] MEDS: NYSTATIN/TRIAMCIN CREAM 30GM TOP SCH ×3 (06:49→21:11)
[2020-06-03 08:00] VITALS: BP 120/84
[2020-06-03] MEDS: CYANOCOBALAMIN 1000MCG/ML VIAL IM SCH (08:13)
[2020-06-03] MEDS: DOCUSATE SODIUM 100MG CAPSULE PO SCH ×2 (08:13→17:59)
[2020-06-03] MEDS: CLOPIDOGREL 75MG TABLET PO SCH (08:14)
[2020-06-03] MEDS: METOPROLOL TARTRATE 50MG TABLET PO SCH ×2 (08:19→21:00)
[2020-06-03] MEDS ORDERED: LACTULOSE 20G/30ML UDC PO SCH (10:00)
[2020-06-03 12:00] VITALS: BP 114/82
[2020-06-03 16:00] VITALS: BP 116/85
[2020-06-03 20:00] VITALS: BP 109/78
[2020-06-03] MEDS: POLYETHYLENE GLYCOL 3350 (17GM) 1 DOSE PACK PO SCH ×2 (21:00→21:10)
[2020-06-03] MEDS: ATORVASTATIN CALCIUM 40MG TABLET PO SCH (21:10)
[2020-06-04] VITALS: BP 98/61
[2020-06-04 04:00] VITALS: BP 95/63
[2020-06-04] MEDS: NYSTATIN/TRIAMCIN CREAM 30GM TOP SCH ×3 (05:55→21:51)
[2020-06-04 08:00] VITALS: BP 95/63
[2020-06-04] MEDS: METOPROLOL TARTRATE 50MG TABLET PO SCH ×2 (09:28→21:50)
[2020-06-04] MEDS: DOCUSATE SODIUM 100MG CAPSULE PO SCH ×2 (09:28→17:33)
[2020-06-04] MEDS: CLOPIDOGREL 75MG TABLET PO SCH (09:28)
[2020-06-04] MEDS: CYANOCOBALAMIN 1000MCG/ML VIAL IM SCH (09:28)
[2020-06-04 12:00] VITALS: BP 97/65
[2020-06-04 16:00] VITALS: BP 110/73
[2020-06-04 20:00] VITALS: BP 129/82
[2020-06-04] MEDS: POLYETHYLENE GLYCOL 3350 (17GM) 1 DOSE PACK PO SCH (21:00)
[2020-06-05] VITALS: BP 99/68
[2020-06-05 04:00] VITALS: BP 104/57
[2020-06-05 08:00] VITALS: BP 143/65
[2020-06-05] MEDS: DOCUSATE SODIUM 100MG CAPSULE PO SCH ×2 (09:19→17:00)
[2020-06-05] MEDS: METOPROLOL TARTRATE 50MG TABLET PO SCH ×2 (09:19→21:37)
[2020-06-05] MEDS: CLOPIDOGREL 75MG TABLET PO SCH (09:20)
[2020-06-05] MEDS: CYANOCOBALAMIN 1000MCG/ML VIAL IM SCH (09:20)
[2020-06-05 12:00] VITALS: BP 116/79
[2020-06-05] MEDS: NYSTATIN/TRIAMCIN CREAM 30GM TOP SCH ×2 (14:40→21:36)
[2020-06-05 16:00] VITALS: BP 103/71
[2020-06-05 20:00] VITALS: BP 97/61
[2020-06-05] MEDS: POLYETHYLENE GLYCOL 3350 (17GM) 1 DOSE PACK PO SCH (21:36)
[2020-06-06] VITALS: BP 102/68
[2020-06-06 04:00] VITALS: BP 111/67
[2020-06-06] MEDS: NYSTATIN/TRIAMCIN CREAM 30GM TOP SCH (06:21)
[2020-06-06 08:00] VITALS: BP 109/70
[2020-06-06] MEDS: CYANOCOBALAMIN 1000MCG/ML VIAL IM SCH (08:55)
[2020-06-06] MEDS: METOPROLOL TARTRATE 50MG TABLET PO SCH ×2 (08:56→20:35)
[2020-06-06] MEDS: DOCUSATE SODIUM 100MG CAPSULE PO SCH ×2 (08:56→17:54)
[2020-06-06] MEDS: CLOPIDOGREL 75MG TABLET PO SCH (08:56)
[2020-06-06 09:40] LABS: BASOPHILS % 0.5 % (0.0-2.0); EOSINOPHILS % 2.8 % (0.0-5.0); HEMATOCRIT. 37.6 % (36.0-48.0); HEMOGLOBIN. 12.7 g/dL (12.0-16.0); LYMPHOCYTES % 25.4 % (20.0-50.0); MEAN CORPUSCULAR HEMOGLOBIN 29.9 pg (28.0-32.0); MEAN PLATELET VOLUME 12.4 fl (7.4-10.4); NEUTROPHILS % 66.3 % (40.0-76.0); PLATELET 185 x1000/uL (130-400); RED BLOOD CELL COUNT 4.23 mill/uL (4.2-5.4)
[2020-06-06 10:24] LABS: CHLORIDE 105 mEq/L (98-107)
[2020-06-06 16:00] VITALS: BP 118/70
[2020-06-06 20:00] VITALS: BP 105/71
[2020-06-06] MEDS: POLYETHYLENE GLYCOL 3350 (17GM) 1 DOSE PACK PO SCH ×2 (20:35→20:36)
[2020-06-06] MEDS ORDERED: ATORVASTATIN CALCIUM 40MG TABLET PO SCH (21:00)
[2020-06-07] VITALS: BP 110/68
[2020-06-07 04:00] VITALS: BP 121/76
[2020-06-07 08:00] VITALS: BP 144/89
[2020-06-07] MEDS: DOCUSATE SODIUM 100MG CAPSULE PO SCH (08:28)
[2020-06-07] MEDS: METOPROLOL TARTRATE 50MG TABLET PO SCH (08:29)
[2020-06-07] MEDS: CYANOCOBALAMIN 1000MCG/ML VIAL IM SCH (08:30)
[2020-06-07] MEDS ORDERED: METO-539 PO (09:20)
[2020-06-07] MEDS ORDERED: DOCU-150 PO (09:20)
[2020-06-07] MEDS ORDERED: FERR325T6 MT (09:20)
[2020-06-07] MEDS ORDERED: LIP40 PO (09:20)
[2020-06-07 12:00] VITALS: BP 134/76
[2020-06-07 13:05] VITALS: BP 134/76
[2020-06-07 16:00] VITALS: BP 139/87
[2020-06-07 17:10] LABS: 25-HYDROXY VITAMIN D3 16 ng/mL (.)
[2020-06-14] MEDS ORDERED: CYANOCOBALAMIN 1000MCG/ML VIAL IM SCH (09:00)
== END 2020-06-07 15:44 | DRG 720 ==
LOC: ER 10:38 → EDBEDREQ 12:33 → EDBEDREQSVC 12:33 → 7WST 14:52 → EDBEDREQ 15:01 → ENRESERV 18:33 → CANRESERV 18:33 → ENRESERV 20:08 → 8WST 05-06 16:25 → 6EST 05-22 10:24
PROVIDERS: ADMIT Internal Medicine; ATTEND Internal Medicine
PROC: 06HY33Z Insertion of Infusion Device into Lower Vein, Percutaneous Approach (ICD-10-PCS; 2020-05-05)
PROC: B54BZZA Ultrasonography of Right Lower Extremity Veins, Guidance (ICD-10-PCS; 2020-05-05)
PROC: 4A00X4Z Measurement of Central Nervous Electrical Activity, External Approach (ICD-10-PCS; principal; 2020-05-14)
PROC: 02H633Z Insertion of Infusion Device into Right Atrium, Percutaneous Approach (ICD-10-PCS; 2020-05-24)
PROC: B518ZZA Fluoroscopy of Superior Vena Cava, Guidance (ICD-10-PCS; 2020-05-24)
PROC: B548ZZA Ultrasonography of Superior Vena Cava, Guidance (ICD-10-PCS; 2020-05-24)
DX: A41.9 Sepsis, unspecified organism (principal); R65.21 Severe sepsis with septic shock; I21.4 Non-ST elevation (NSTEMI) myocardial infarction; I63.9 Cerebral infarction, unspecified; N17.9 Acute kidney failure, unspecified; D72.810 Lymphocytopenia; E86.1 Hypovolemia; E87.0 Hyperosmolality and hypernatremia; E87.2 Acidosis; F12.90 Cannabis use, unspecified, uncomplicated; I47.1 Supraventricular tachycardia; N18.9 Chronic kidney disease, unspecified; M19.90 Unspecified osteoarthritis, unspecified site; R91.1 Solitary pulmonary nodule; S70.221A Blister (nonthermal), right hip, initial encounter; X58.XXXA Exposure to other specified factors, initial encounter; M51.36 Other intervertebral disc degeneration, lumbar region; G83.11 Monoplegia of lower limb affecting right dominant side; M62.82 Rhabdomyolysis; J18.9 Pneumonia, unspecified organism; R13.10 Dysphagia, unspecified; R26.9 Unspecified abnormalities of gait and mobility; E27.9 Disorder of adrenal gland, unspecified; D50.9 Iron deficiency anemia, unspecified; E78.5 Hyperlipidemia, unspecified; M47.816 Spondylosis without myelopathy or radiculopathy, lumbar region; G92 Toxic encephalopathy; M48.02 Spinal stenosis, cervical region; M48.04 Spinal stenosis, thoracic region; Z20.828 Contact with and (suspected) exposure to other viral communicable diseases; M48.061 Spinal stenosis, lumbar region without neurogenic claudication; I12.9 Hypertensive chronic kidney disease with stage 1 through stage 4 chronic kidney disease, or unspecified chronic kidney disease; I51.7 Cardiomegaly; Y93.89 Activity, other specified; Y92.89 Other specified places as the place of occurrence of the external cause; Y99.8 Other external cause status; Z82.49 Family history of ischemic heart disease and other diseases of the circulatory system
CPT/HCPCS: 36415; 36573; 36600; 70544; 70547; 70551; 71045; 72146; 72148; 74176; 76770; 76937; 80048; 80053; 80061; 80202; 80305; 80320; 81003; 82040; 82140; 82306; 82375; 82550; 82570; 82607; 82728; 82746; 82805; 82962; 83036; 83540; 83550; 83605; 83735; 83880; 84100; 84134; 84145; 84156; 84443; 84484; 84703; 85025; 85044; 85379; 86160; 86225; 86850; 86900; 87635; 92610; 93005; 93306; 93312; 93880; 95816; 96365; 97110; 97112; 97116; 97162; 97167; 97530; 97535; 99291; C1725; J0456; J0692; J2060; J2250; J2543; J3010; J3370; J3420; J3490; J7060; G0480